=== PATIENT | male | born 1965 | race Caucasian/White ===

== ENCOUNTER 2021-01-30 16:20 | Emergency (ER) | payer OTHER ==
[2021-01-30 17:08] LABS: BASOPHIL 0.2 % (0-2); EOSINOPHIL 0 % (0-5); HCT 42.2 % (42.0-52.0); HGB 14.9 g/dl (13.2-18.0); LYMPHOCYTE 5.7 % (15-48); MCHC 35.3 g/dL (32.0-36.0); MCV 85.1 fL (78.0-100.0); MONOCYTE 2.2 % (0-12); MPV 9.1 fL (6.0-9.5); NEUTROPHIL 91.1 % (41-80); NRBC 0; PLT 250 K/uL (150-400); RBC 4.96 M/uL (4.70-6.00); RDW 12.2 % (11.5-14.0); WBC 13.1 K/uL (4.0-10.5)
[2021-01-30 17:23] LABS: ALBUMIN 3.6 g/dL (3.4-5.0); BILIRUBIN - TOTAL 0.5 mg/dL (0.2-1.0); BUN/CREAT RATIO (CALC) 16.3 RATIO; CREATININE 0.98 mg/dL (0.67-1.17); GLOBULIN (CALCULATION) 2.8 g/dL; POTASSIUM 4.1 mmol/L (3.5-5.1); TOTAL PROTEIN 6.4 g/dL (6.4-8.2)
== END 2021-01-30 19:07 | disposition home or self-care (01) ==
LOC: FER 16:20
PROVIDERS: Emergency Medicine
DX: R55 Syncope and collapse (principal); R11.2 Nausea with vomiting, unspecified; R53.83 Other fatigue; R94.31 Abnormal electrocardiogram [ECG] [EKG]; I45.10 Unspecified right bundle-branch block
CPT/HCPCS: 36415; 71045; 80053; 84484; 85025; 93005; J2405; J7030